=== PATIENT | female | born 1965 | race Caucasian/White ===

== ENCOUNTER 2016-12-15 08:34 | Day surgery (SDC) | payer BC ==
[2016-12-15] MEDS ORDERED: LABETALOL HCL 5MG/ML, 20ML VIAL SIVP ONE (15:40)
[2016-12-15] MEDS ORDERED: FENTANYL PF 100MCG/2ML VIAL IV ONE (15:40)
[2016-12-15] MEDS ORDERED: PROPOFOL 10 MG/ML VIAL IV ONE (15:40)
--- NOTE | 2016-12-16 15:50 | Operative Note ---
DATE OF SURGERY: 12/15/2016 OPERATION: COLONOSCOPY to the cecum with cold snare polypectomy x2. INDICATION: Colorectal cancer screening. ANESTHESIA: Intravenous sedation was administered by the department of anesthesiology and included Diprivan titrated to effect. PROCEDURE: Following informed consent from this alert individual, including a discussion of the risks and benefits of the procedure and an opportunity for the patient to ask questions, the patient was placed in the left lateral decubitus position. A digital rectal examination was performed. No abnormalities were detected. Following this, the Olympus [id number] video colonoscope was inserted into the rectum without resistance. The rectal mucosa had a normal appearance with normal folds and distensibility. The colonoscope was advanced up through the bowel to the level of the cecum without much difficulty. Throughout the bowel, the mucosa appeared normal, the folds are normal and the bowel was fairly well distensible. The colon preparation was good but there was some retained debris in the cecum which was removed away with biopsy forceps and washed. From the cecum, the colonoscope was then withdrawn. There was a 6 mm polyp noted in the transverse colon which was removed with cold snare polypectomy and suctioned through the endoscope into a collection trap. No other changes were noted until the rectum was reached. Within the rectum, there was a 4 mm polyp also removed with cold snare polypectomy. Retroflexion in the rectum was endoscopically normal. The endoscope was straightened and removed. The patient tolerated the procedure well and was returned to the recovery area in stable condition. IMPRESSION: 1. A 4 mm transverse colon polyp removed with cold snare polypectomy. 2. A 4 mm rectal polyp removed with cold snare polypectomy. RECOMMENDATIONS: Further recommendations will be forthcoming pending results of pathology obtained today. Followup will also be with Dr. Munoz. As always, thank you for allowing me to participate in the care of your patient. Syed Jean DO CC: Dr. Tammy EDWARDS
--- NOTE | 2016-12-16 15:50 | Operative Note ---
DATE OF SURGERY: 12/15/2016 OPERATION: ESOPHAGOGASTRODUODENOSCOPY with biopsy. INDICATION: Chronic gastroesophageal reflux with pyrosis. ANESTHESIA: Intravenous sedation was administered by the department of anesthesiology and included Diprivan titrated to effect. PROCEDURE: Following informed consent from this alert individual, including a discussion of the risks and benefits of the procedure and an opportunity for the patient to ask questions, the patient was in the left lateral decubitus position. The Olympus [id number] video endoscope was inserted into the esophagus without resistance. The proximal esophagus had a normal appearance with normal folds and distensibility. The mid and distal esophagus likewise was free from mucosal changes. The squamocolumnar junction approximated the diaphragmatic hiatus. This structure was traversed and the stomach was entered. The gastric fundus and pars media had a normal appearance with normal folds and distensibility. There were multiple gastric fundal polyps noted. The antrum evaluated circumferentially was endoscopically unremarkable. The pylorus was patent. The duodenal bulb, sweep, and descending duodenum were then examined in a serial fashion and found to be normal. The endoscope was then drawn back into the body of the stomach. Retroflexion accomplished following air insufflation failed to demonstrate additional abnormalities. The endoscope was then straightened. Biopsies were taken from one of the gastric fundal polyps. The endoscope was then withdrawn back through a normal esophagus and removed from the patient. The patient tolerated the procedure well and was returned to the recovery area in stable condition. IMPRESSION: Multiple gastric fundal polyps, biopsies taken, otherwise unremarkable esophagogastroduodenoscopy. RECOMMENDATION: The patient can continue with acid blockade therapy if it controls her heartburn. Further recommendations forthcoming pending biopsy. Followup will be with Dr. Munoz. As always, thank you for allowing me to participate in the care of your patient. Syed Jean DO CC: Dr. Tammy EDWARDS
== END 2016-12-15 11:10 | disposition home or self-care (01) ==
LOC: HOP 08:34
PROVIDERS: ATTEND Internal Medicine Gastroenterology
DX: Z12.11 Encounter for screening for malignant neoplasm of colon (principal); D12.3 Benign neoplasm of transverse colon; K31.7 Polyp of stomach and duodenum; K62.1 Rectal polyp; I10 Essential (primary) hypertension
CPT/HCPCS: 45385; 43239; 00810; 81025; J3010